=== PATIENT | male | born 1940 | race Caucasian/White ===

== ENCOUNTER 2022-07-09 18:57 | Inpatient (IN) | payer MEDICARE, OTHER ==
[2022-07-09 20:58] VITALS: BMI 25.8
[2022-07-09] MEDS ORDERED: Acetaminophen 325 MG TAB PO SCH (21:30)
[2022-07-09] MEDS ORDERED: HYDROcodone/Acetaminophen 5/325 mg Tablet PO PRN ×2 (22:28)
[2022-07-09] MEDS ORDERED: Ondansetron PF 4 MG/2 ML Vial IVP PRN (22:28)
[2022-07-09] MEDS ORDERED: Ondansetron ODT 4 MG TAB PO PRN (22:28)
[2022-07-09] MEDS ORDERED: Lantus 1000 UNITS/10 ML VIAL SC SCH (23:00)
[2022-07-09 23:54] LABS: Troponin I 0.651 ng/mL (< 0.028)
[2022-07-10 04:17] LABS: #Eosinphils 0.1 10x3/uL (0.0-0.5); #Monocytes 0.9 10x3/uL (0.0-1.1); #Neutrophils 7.3 10x3/uL (1.5-8.4); %Basophils 0.3 % (0.0-2.0); %Eosinophils 1.1 % (0.0-6.0); %Lymphocytes 11.8 % (18.0-47.0); %Monocytes 9.1 % (0.0-10.0); %Neutrophils 77.2 % (40.0-75.0); Hemoglobin 12.9 g/dL (13.5-17.5); Mean Corpuscular HGB CONC 33.7 g/dL (32.0-36.0); Mean Corpuscular Hemoglobin 30.6 pg (27.0-33.0); Mean Platelet Volume 9.5 fl (7.4-10.4); Platelet Count 236 10x3/uL (150-450); RBC Distribution Width 12.2 % (11.5-14.5); Red Blood Cell (RBC) Count 4.21 10x6/uL (4.32-5.72); White Blood Cell (WBC) Count 9.4 10x3/uL (3.5-10.5)
[2022-07-10 04:24] LABS: PTT 33.6 sec (22.0-33.0); Prothrombin Time 11.3 sec (9.5-12.1)
[2022-07-10 04:27] LABS: Anion Gap 14 mmol/L (10-20); BUN (Urea Nitrogen) 26 mg/dL (8.4-25.7); Calc. Creatinine Clearance 46 mL/min (70-130); Carbon Dioxide 22 mmol/L (23-31); Chloride 101 mmol/L (98-107); Estimated GFR 49; Glucose 270 mg/dL (83-110); Magnesium 1.7 mg/dL (1.6-2.6); Potassium 4.7 mmol/L (3.5-5.1); Sodium 132 mmol/L (136-145)
[2022-07-10 04:39] LABS: Troponin I 0.678 ng/mL (< 0.028)
[2022-07-10] MEDS ORDERED: HumaLOG 300 UNITS/3 ML VIAL SC SCH (04:45)
[2022-07-10] MEDS: Enoxaparin Sodium 80 MG/0.8 ML SYRINGE SC SCH ×2 (05:09→17:02)
[2022-07-10] MEDS: HumaLOG 300 UNITS/3 ML VIAL SC SCH ×3 (09:21→17:15)
[2022-07-10] MEDS: Lisinopril 2.5 MG TAB PO SCH (09:23)
[2022-07-10] MEDS: Cyanocobalamin (Vitamin B-12) 1,000 MCG TAB PO SCH (09:23)
[2022-07-10] MEDS: Clopidogrel Bisulfate 75 MG TAB PO SCH (09:23)
[2022-07-10] MEDS ORDERED: Acetaminophen 325 MG TAB PO SCH (21:15)
[2022-07-10] MEDS: Atorvastatin Calcium 40 MG TAB PO SCH (21:47)
[2022-07-10] MEDS: Lantus 1000 UNITS/10 ML VIAL SC SCH (21:48)
[2022-07-11] MEDS: Enoxaparin Sodium 80 MG/0.8 ML SYRINGE SC SCH (05:34)
[2022-07-11] MEDS: Lisinopril 2.5 MG TAB PO SCH (08:49)
[2022-07-11] MEDS: Clopidogrel Bisulfate 75 MG TAB PO SCH (08:52)
[2022-07-11] MEDS: Cyanocobalamin (Vitamin B-12) 1,000 MCG TAB PO SCH (08:52)
[2022-07-11] MEDS: HumaLOG 300 UNITS/3 ML VIAL SC SCH ×3 (08:54→17:17)
[2022-07-11] MEDS: Atorvastatin Calcium 40 MG TAB PO SCH (20:57)
[2022-07-11] MEDS: Apixaban 5 MG TAB PO SCH (20:57)
[2022-07-11] MEDS: Lantus 1000 UNITS/10 ML VIAL SC SCH (20:59)
[2022-07-12] MEDS: HumaLOG 300 UNITS/3 ML VIAL SC SCH (08:15)
[2022-07-12 09:22] VITALS: BP 107/65; TEMP 98.2
[2022-07-12] MEDS: Apixaban 5 MG TAB PO SCH (09:57)
[2022-07-12] MEDS: Cyanocobalamin (Vitamin B-12) 1,000 MCG TAB PO SCH (09:57)
[2022-07-12] MEDS: Clopidogrel Bisulfate 75 MG TAB PO SCH (09:57)
== END 2022-07-12 11:35 | disposition home or self-care (01) | DRG 280 ==
LOC: CSHTELE 19:04
PROVIDERS: ADMIT Family Medicine; ATTEND Family Medicine
PROC: 5A09457 Assistance with Respiratory Ventilation, 24-96 Consecutive Hours, Continuous Positive Airway Pressure (ICD-10-PCS; principal; 2022-07-09)
DX: I82.413 Acute embolism and thrombosis of femoral vein, bilateral (principal); I21.A1 Myocardial infarction type 2; I26.99 Other pulmonary embolism without acute cor pulmonale; J96.01 Acute respiratory failure with hypoxia; I25.10 Atherosclerotic heart disease of native coronary artery without angina pectoris; M10.9 Gout, unspecified; N18.31 Chronic kidney disease, stage 3a; N40.1 Benign prostatic hyperplasia with lower urinary tract symptoms; M25.569 Pain in unspecified knee; R35.1 Nocturia; E11.22 Type 2 diabetes mellitus with diabetic chronic kidney disease; I12.9 Hypertensive chronic kidney disease with stage 1 through stage 4 chronic kidney disease, or unspecified chronic kidney disease; I48.0 Paroxysmal atrial fibrillation; E78.5 Hyperlipidemia, unspecified; Z79.01 Long term (current) use of anticoagulants; Z98.890 Other specified postprocedural states; Z95.1 Presence of aortocoronary bypass graft; Z88.8 Allergy status to other drugs, medicaments and biological substances; Z87.11 Personal history of peptic ulcer disease; Z90.89 Acquired absence of other organs; Z80.0 Family history of malignant neoplasm of digestive organs; Z79.4 Long term (current) use of insulin; Z79.899 Other long term (current) drug therapy; Z86.73 Personal history of transient ischemic attack (TIA), and cerebral infarction without residual deficits
CPT/HCPCS: 36415; 36416; 80048; 83735; 84484; 85025; 85610; 85730; 93005; 93010; 93306; 93970; 94760; J1650; J1815

== ENCOUNTER 2024-06-25 17:55 | Observation (INO) | payer MEDICARE, OTHER ==
[2024-06-25] MEDS ORDERED: traMADol HCl 50 MG TAB PO PRN (18:11)
[2024-06-25] MEDS ORDERED: Calcium Carbonate 500 MG ChewTAB PO PRN (18:11)
[2024-06-25] MEDS ORDERED: Senokot S 8.6-50 MG TAB PO PRN (18:11)
[2024-06-25] MEDS ORDERED: Acetaminophen 325 MG TAB PO PRN (18:11)
[2024-06-25 18:12] VITALS: BMI 26.4
[2024-06-25] MEDS ORDERED: Dextrose 50% Abboject 50 ML SYRINGE SLOW IVP PRN (18:15)
[2024-06-25] MEDS ORDERED: Glucagon 1 MG/ML KIT IM PRN (18:15)
[2024-06-25] MEDS ORDERED: Insulin Lispro 100 UNIT/ML 10 ML VIAL SC PRN (18:15)
[2024-06-25] MEDS ORDERED: Dextrose 5% in Water 1,000 ML IV PRN (18:15)
[2024-06-25] MEDS ORDERED: Atorvastatin Calcium 40 MG TAB PO SCH (21:00)
[2024-06-25] MEDS: Atorvastatin Calcium 40 MG TAB PO SCH (22:21)
[2024-06-25] MEDS: Lantus 1000 UNITS/10 ML VIAL SC SCH (22:21)
[2024-06-25] MEDS: Rivaroxaban 15 MG TAB PO SCH (22:21)
[2024-06-25] MEDS: Montelukast Sodium 10 mg Tablet PO SCH (22:21)
[2024-06-26 04:03] LABS: #Basophils 0.05 10x3/uL (0.0-0.2); #Eosinphils 0.22 10x3/uL (0.0-0.5); #Neutrophils 5.05 10x3/uL (1.5-8.4); %Basophils 0.6 % (0.0-2.0); %Eosinophils 2.5 % (0.0-6.0); %Lymphocytes 27.8 % (18.0-47.0); %Monocytes 11.3 % (0.0-10.0); %Neutrophils 57.2 % (40.0-75.0); Hematocrit 38.4 % (38.8-50.0); Hemoglobin 12.6 g/dL (13.5-17.5); Mean Corpuscular HGB CONC 32.8 g/dL (32.0-36.0); Mean Corpuscular Hemoglobin 30.7 pg (27.0-33.0); Mean Corpuscular Volume 93.4 fL (81.2-95.1); Mean Platelet Volume 10.1 fL (7.4-10.4); Platelet Count 219 10x3/uL (150-450); RBC Distribution Width 12.8 % (11.5-14.5); Red Blood Cell (RBC) Count 4.11 10x6/uL (4.32-5.72); White Blood Cell (WBC) Count 8.8 10x3/uL (3.5-10.5)
[2024-06-26 04:12] LABS: ALT (SGPT) 17 U/L (8-55); AST (SGOT) 18 U/L (5-34); Albumin 3.3 g/dL (3.4-4.8); Alkaline Phosphatase 97 U/L (40-110); Anion Gap 13 mmol/L (10-20); BUN (Urea Nitrogen) 26 mg/dL (8.4-25.7); Bilirubin, Total 0.6 mg/dL (0.2-1.2); Calc. Creatinine Clearance 47 mL/min (70-130); Carbon Dioxide 21 mmol/L (23-31); Cardiac Risk 2.7 (Less than 4.5); Chloride 106 mmol/L (98-107); Cholesterol 104 mg/dl (< 200 Desired); Estimated GFR 50; Globulin 3.1 g/dL (2.4-3.5); Glucose 224 mg/dL (83-110); HDL Cholesterol 38 mg/dL (>60 Neg Risk); LDL Cholesterol, Calculated 55 mg/dL; Potassium 4.3 mmol/L (3.5-5.1); Protein, Total 6.4 g/dL (5.8-8.1); Sodium 136 mmol/L (136-145); Triglycerides 54 mg/dL (Less than 150)
[2024-06-26 07:58] VITALS: TEMP 98.2
[2024-06-26] MEDS: Losartan 50 MG TAB PO SCH (08:07)
[2024-06-26] MEDS: Aspirin 81 mg Enteric Coated Tablet PO SCH (08:08)
[2024-06-26] MEDS: Insulin Lispro 100 UNIT/ML 10 ML VIAL SC SCH (08:08)
[2024-06-26] MEDS ORDERED: Famotidine 20 MG TAB PO PRN (09:00)
[2024-06-26 11:25] VITALS: BP 137/71
[2024-06-26] MEDS ORDERED: Lantus 1000 UNITS/10 ML VIAL SC SCH (13:00)
[2024-06-26] MEDS ORDERED: Montelukast Sodium 10 mg Tablet PO SCH (21:00)
[2024-06-26] MEDS ORDERED: Atorvastatin Calcium 40 MG TAB PO SCH (21:00)
[2024-06-26] MEDS ORDERED: Rivaroxaban 15 MG TAB PO SCH (21:00)
== END 2024-06-26 12:26 | disposition home or self-care (01) ==
LOC: INTOOBSV 17:55 → CSHTELE 17:55
PROVIDERS: ADMIT Family Medicine; ATTEND Family Medicine
DX: R47.01 Aphasia (principal); I25.10 Atherosclerotic heart disease of native coronary artery without angina pectoris; R41.82 Altered mental status, unspecified; E11.65 Type 2 diabetes mellitus with hyperglycemia; I48.91 Unspecified atrial fibrillation; I48.20 Chronic atrial fibrillation, unspecified; K27.9 Peptic ulcer, site unspecified, unspecified as acute or chronic, without hemorrhage or perforation; E11.9 Type 2 diabetes mellitus without complications; E78.5 Hyperlipidemia, unspecified; N40.1 Benign prostatic hyperplasia with lower urinary tract symptoms; M10.9 Gout, unspecified; Z90.89 Acquired absence of other organs; F17.200 Nicotine dependence, unspecified, uncomplicated; Z86.711 Personal history of pulmonary embolism; Z95.1 Presence of aortocoronary bypass graft; Z88.6 Allergy status to analgesic agent; Z79.82 Long term (current) use of aspirin; Z79.01 Long term (current) use of anticoagulants; Z79.899 Other long term (current) drug therapy; Z79.4 Long term (current) use of insulin; Z88.8 Allergy status to other drugs, medicaments and biological substances
CPT/HCPCS: 70551; 80053; 80061; 85025; G0378 ×2; J1815 ×2; 36415; 36416